=== PATIENT | male | born 1980 | race African-American/Black ===

== ENCOUNTER 2020-07-29 00:12 | Emergency (ER) | payer MEDICAID ==
[~2020-07-29] VITALS: Ht 198.1 cm; Wt 172.4 kg
[2020-07-29 00:12] VITALS: BP 138/90
== END 2020-07-29 04:58 | disposition home or self-care (01) ==
LOC: ER 00:14
DX: S93.402A Sprain of unspecified ligament of left ankle, initial encounter (principal); W19.XXXA Unspecified fall, initial encounter; Y93.89 Activity, other specified; Y92.89 Other specified places as the place of occurrence of the external cause; Y99.8 Other external cause status; Z98.890 Other specified postprocedural states
CPT/HCPCS: 73610; 73630

== ENCOUNTER 2022-04-26 04:46 | Emergency (ER) | payer MEDICAID, OTHER ==
[~2022-04-26] VITALS: Ht 198.1 cm; Wt 140.0 kg
[2022-04-26] MEDS ORDERED: PRED20TA2 PO (05:26)
[2022-04-26] MEDS ORDERED: AMOX-277 PO (05:26)
[2022-04-26 05:41] VITALS: BP 140/77
== END 2022-04-26 05:46 | disposition home or self-care (01) ==
LOC: ER 04:46
DX: J06.9 Acute upper respiratory infection, unspecified (principal)

== ENCOUNTER 2022-06-28 03:54 | Emergency (ER) | payer MEDICAID ==
[~2022-06-28] VITALS: Ht 198.1 cm; Wt 195.0 kg
[~2022-06-28 03:54] MED LIST: AMOX-277 PO; PRED20TA2 PO
[2022-06-28] MEDS ORDERED: KETOROLAC TROMETH 30 MG/ML 1ML VIAL IM ONE (07:45)
[2022-06-28] MEDS ORDERED: IBUP600T28 PO (07:54)
[2022-06-28] MEDS ORDERED: CYCL-839 PO (07:54)
[2022-06-28 07:55] VITALS: BP 146/77
== END 2022-06-28 08:09 | disposition home or self-care (01) ==
LOC: ER 03:54
DX: S83.92XA Sprain of unspecified site of left knee, initial encounter (principal); Z88.1 Allergy status to other antibiotic agents; Z88.6 Allergy status to analgesic agent; W22.8XXA Striking against or struck by other objects, initial encounter; Y93.89 Activity, other specified; Y92.89 Other specified places as the place of occurrence of the external cause; Y99.8 Other external cause status
CPT/HCPCS: 73552; 73562; 96372; 99284; J1885